=== PATIENT | male | born 1950 | race Caucasian/White ===

== ENCOUNTER 2021-04-05 16:56 | Inpatient (IN) | payer OTHER, MEDICAID ==
[~2021-04-05] VITALS: Ht 165.1 cm; Wt 77.6 kg
[2021-04-05] MEDS ORDERED: ALBUTEROL (0.083%) 2.5MG/3ML NEB HHN STA (17:12)
[2021-04-05] MEDS ORDERED: DOPAMINE 400MG/250ML PREMIX 250 ML IV ONE (17:15)
[2021-04-05] MEDS ORDERED: ATROPINE SULFATE 1MG/10ML SYR IV ONE (17:15)
[2021-04-05 17:49] LABS: BASOPHILS % 0.6 % (0.0-2.0); EOSINOPHILS % 0.7 % (0.0-5.0); HEMATOCRIT. 27.8 % (42.0-52.0); HEMOGLOBIN. 8.8 g/dL (14.0-18.0); LYMPHOCYTES % 30.5 % (20.0-50.0); MEAN CORPUSCULAR HEMOGLOBIN 24.9 pg (28.0-32.0); MEAN CORPUSCULAR VOLUME 78.8 fL (80.0-94.0); MEAN PLATELET VOLUME 9.1 fl (7.4-10.4); MONOCYTES % 7.6 % (2.0-8.0); NEUTROPHILS % 60.6 % (40.0-76.0); PLATELET 173 x1000/uL (130-400); RED BLOOD CELL COUNT 3.53 mill/uL (4.7-6.1); RED CELL DISTRIBUTION WIDTH 19.3 % (11.6-14.6)
[2021-04-05 17:55] LABS: CHLORIDE 110 mEq/L (98-107)
[2021-04-05 17:57] LABS: INR 1.1; PROTHROMBIN TIME 11.9 sec (9.6-11.0)
[2021-04-05 17:58] LABS: ETHANOL BLOOD < 10 mg/dL
[2021-04-05 19:49] LABS: CLARITY URINE CLEAR (CLEAR); COLOR URINE YELLOW (YELLOW); KETONES URINE NEGATIVE (NEGATIVE); LEUKOCYTE ESTERASE URINE NEGATIVE (NEGATIVE); NITRITE URINE NEGATIVE (NEGATIVE); OCCULT BLOOD URINE NEGATIVE (NEGATIVE); PH URINE 5.5 (4.5-8.0); PROTEIN URINE TRACE (NEGATIVE); SPECIFIC GRAVITY URINE 1.011 (1.005-1.030); UROBILINOGEN URINE 0.2 E.U./dL (0.2-1.0)
[2021-04-05 20:04] LABS: *AMPHETAMINES SCREEN URINE NEGATIVE (NEGATIVE); *BARBITURATES SCREEN URINE NEGATIVE (NEGATIVE); *BENZODIAZEPINES SCREEN URINE NEGATIVE (NEGATIVE); *COCAINE SCREEN URINE NEGATIVE (NEGATIVE); METHADONE URINE SCREEN NEGATIVE (NEGATIVE); OPIATES URINE SCREEN NEGATIVE (NEGATIVE); PHENCYCLIDINE URINE SCREEN NEGATIVE (NEGATIVE)
[2021-04-05 20:06] LABS: CANNABINOID URINE SCREEN NEGATIVE (NEGATIVE)
[2021-04-05 20:46] LABS: INR 1.1
[2021-04-06] VITALS (13 sets, daily range): BP systolic 99–166; BP diastolic 50–89
[2021-04-06] MEDS ORDERED: DEXTROSE 50% WATER 50ML SYRINGE IV PRN (01:15)
[2021-04-06] MEDS ORDERED: ONDANSETRON HCL 4MG/2ML INJ IV PRN (01:15)
[2021-04-06] MEDS ORDERED: ENOXAPARIN 40MG/0.4ML SYR SUBCUT SCH (01:15)
[2021-04-06] MEDS ORDERED: DIPHENHYDRAMINE 50MG/ML VIAL IV PRN (01:15)
[2021-04-06] MEDS ORDERED: ACETAMINOPHEN 325MG TABLET PO PRN (01:15)
[2021-04-06] MEDS: ACETAMINOPHEN 325MG TABLET PO PRN (02:14)
[2021-04-06] MEDS ORDERED: DICL100G16 TP (02:36)
[2021-04-06] MEDS ORDERED: CHOL400D7 PO (02:36)
[2021-04-06] MEDS ORDERED: METFORMIN PO (02:44)
[2021-04-06] MEDS ORDERED: TRU10 RIGHTEYE (02:44)
[2021-04-06] MEDS ORDERED: GLIPIZIDE PO (02:44)
[2021-04-06] MEDS ORDERED: LOSA50TA41 PO (02:44)
[2021-04-06] MEDS ORDERED: BRIM.2 BOTHEYE (02:44)
[2021-04-06] MEDS ORDERED: XALAO EACHEYE (02:44)
[2021-04-06] MEDS ORDERED: HYDR25TA PO (02:44)
[2021-04-06] MEDS ORDERED: DICLOFENAC SODIUM 4 GM TP PRN (02:45)
[2021-04-06] MEDS: SODIUM CHLORIDE 0.9% INJ 3ML FLUSH IVF SCH ×3 (06:07→20:39)
[2021-04-06] MEDS: BLOOD SUGAR DIAGNOSTIC STRIP TEST SCH ×4 (06:14→20:38)
[2021-04-06] MEDS: INSULIN LISPRO 100 UNITS/ML SUBCUT SCH ×4 (07:20→20:38)
[2021-04-06] MEDS: CHOLECALCIFEROL (D3) 1000 UNIT TABLET PO SCH (09:00)
[2021-04-06] MEDS ORDERED: CHOLECALCIFEROL 50 MCG PO SCH (09:00)
[2021-04-06] MEDS: ENOXAPARIN 30MG/0.3ML SYR SUBCUT SCH (09:01)
[2021-04-06] MEDS: BRIMONIDINE 0.2% OPHTH DROPS 5ML BOTHEYE SCH ×3 (09:10→19:25)
[2021-04-06] MEDS: DORZOLAMIDE 2% OPHTH 10 ML BOTTLE RIGHTEYE SCH ×3 (09:10→19:25)
[2021-04-06] MEDS: AMLODIPINE 5MG TABLET PO SCH (13:44)
[2021-04-06] MEDS ORDERED: NALOXONE HCL 0.4MG/ML VIAL IV PRN (14:45)
[2021-04-06] MEDS: LATANOPROST 0.005% OPHTH DROPS 2.5ML EACHEYE SCH (20:39)
[2021-04-07] VITALS (14 sets, daily range): BP systolic 103–157; BP diastolic 54–94
[2021-04-07] MEDS: HYDROCODONE/ACETAMINOPHEN 5/325MG TABLET PO PRN ×2 (00:23→21:38)
[2021-04-07] MEDS: BLOOD SUGAR DIAGNOSTIC STRIP TEST SCH ×4 (06:01→21:00)
[2021-04-07] MEDS: SODIUM CHLORIDE 0.9% INJ 3ML FLUSH IVF SCH ×3 (06:01→22:00)
[2021-04-07] MEDS: INSULIN LISPRO 100 UNITS/ML SUBCUT SCH ×5 (07:20→21:38)
[2021-04-07] MEDS: CHOLECALCIFEROL (D3) 1000 UNIT TABLET PO SCH (09:41)
[2021-04-07] MEDS: DORZOLAMIDE 2% OPHTH 10 ML BOTTLE RIGHTEYE SCH ×3 (09:42→18:08)
[2021-04-07] MEDS: ENOXAPARIN 30MG/0.3ML SYR SUBCUT SCH (09:42)
[2021-04-07] MEDS: AMLODIPINE 5MG TABLET PO SCH (09:43)
[2021-04-07] MEDS: BRIMONIDINE 0.2% OPHTH DROPS 5ML BOTHEYE SCH ×3 (09:43→18:08)
[2021-04-07] MEDS: ACETAMINOPHEN 325MG TABLET PO PRN ×2 (09:55→23:50)
[2021-04-07] MEDS: LATANOPROST 0.005% OPHTH DROPS 2.5ML EACHEYE SCH (21:40)
== END 2021-04-08 00:20 | disposition short-term general hospital (02) | DRG 308 ==
LOC: ER 16:56 → 3WST 21:19 → ENRESERV 04-06 00:12
PROVIDERS: ADMIT Internal Medicine; ATTEND Internal Medicine
DX: I44.1 Atrioventricular block, second degree (principal); E43 Unspecified severe protein-calorie malnutrition; G90.8 Other disorders of autonomic nervous system; N18.9 Chronic kidney disease, unspecified; I12.9 Hypertensive chronic kidney disease with stage 1 through stage 4 chronic kidney disease, or unspecified chronic kidney disease; E11.22 Type 2 diabetes mellitus with diabetic chronic kidney disease; E78.5 Hyperlipidemia, unspecified; F17.200 Nicotine dependence, unspecified, uncomplicated; E78.00 Pure hypercholesterolemia, unspecified; M16.11 Unilateral primary osteoarthritis, right hip; Z20.822 Contact with and (suspected) exposure to COVID-19; S76.011A Strain of muscle, fascia and tendon of right hip, initial encounter; X58.XXXA Exposure to other specified factors, initial encounter; Y93.89 Activity, other specified; Y92.89 Other specified places as the place of occurrence of the external cause; Z79.899 Other long term (current) drug therapy; Z88.0 Allergy status to penicillin; Z79.84 Long term (current) use of oral hypoglycemic drugs; Y99.8 Other external cause status; Z68.28 Body mass index [BMI] 28.0-28.9, adult
CPT/HCPCS: 36415; 71045; 73502; 80053; 80305; 80320; 81003; 82962; 83036; 83605; 83880; 84443; 84484; 85025; 87426; 93306; 94640; 99285; J1200; J1650; J1815; G0480